=== PATIENT | female | born 1950 | race Caucasian/White ===

== ENCOUNTER 2020-10-23 07:28 | Inpatient (IN) | payer MEDICARE, OTHER ==
[~2020-10-23] VITALS: Ht 162.6 cm; Wt 71.7 kg
[2020-10-23] VITALS (15 sets, daily range): BP systolic 87–122; BP diastolic 61–82
[2020-10-23] MEDS ORDERED: SODIUM CHLORIDE 0.9% 1000ML 1,000 ML ONE (07:55)
[2020-10-23] MEDS ORDERED: SODIUM CHLORIDE 0.9% 1000ML 1,000 ML IV SCH (08:00)
[2020-10-23] MEDS ORDERED: SODIUM CHLORIDE FLUSH 10 ML SYR INJ PRN (09:15)
[2020-10-23] MEDS ORDERED: PANTOPRAZOLE 40 MG 10ML VIAL ONE (09:25)
[2020-10-23 10:07] LABS: BASOPHILS # (AUTO) 0.1 (0.0-0.1); BASOPHILS % 0.5 % (0.0-1.0); EOSINOPHILS # (AUTO) 0.1 (0.0-0.4); EOSINOPHILS % 1.1 % (0.0-6.0); HEMATOCRIT 26.8 % (34.2-44.1); HEMOGLOBIN 9.2 g/dL (12.0-16.0); LYMPHOCYTES # (AUTO) 1.4 (1.0-3.2); LYMPHOCYTES % 11.9 % (18.0-39.1); MEAN CORPUSCULAR HEMOGLOBIN 31.6 pg (28-32); MEAN CORPUSCULAR HGB CONC 34.3 g/dL (31-35); MEAN CORPUSCULAR VOLUME 92.1 fL (81-99); MONOCYTES # (AUTO) 0.8 (0.2-0.8); MONOCYTES % 6.6 % (4.4-11.3); NEUTROPHILS # (AUTO) 9.6 (2.1-6.9); NEUTROPHILS % 79.5 % (38.7-80.0); PLATELET COUNT 208 x10e3/uL (140-360); RED BLOOD COUNT 2.91 x10e6/uL (3.6-5.1)
[2020-10-23 10:39] LABS: CREATINE KINASE MB 0.3 ng/mL (0-5.0)
[2020-10-23] MEDS ORDERED: ARICEPT5 MG PO (10:45)
[2020-10-23] MEDS ORDERED: NAMENDA10 MG PO (10:45)
[2020-10-23] MEDS ORDERED: ASPIRIN81 MG PO (10:45)
[2020-10-23] MEDS ORDERED: ZYPREXA2.5 MG PO (10:45)
[2020-10-23] MEDS ORDERED: AMLODIPINE BESYL5 MG PO (10:45)
[2020-10-23] MEDS ORDERED: SERTRALINE HCL100 MG PO (10:45)
[2020-10-23] MEDS ORDERED: LIPITOR20 MG PO (10:45)
[2020-10-23] MEDS ORDERED: LOSARTAN POTASS25 MG PO (10:45)
[2020-10-23 13:04] LABS: ALBUMIN 3.3 g/dL (3.5-5.0); ALBUMIN/GLOBULIN RATIO 1.2 (0.8-2.0); ANION GAP 16.4 mmol/L (8-16); CALCIUM 8.4 mg/dL (8.4-10.2); CREATININE, SERUM 1.03 mg/dL (0.57-1.11); POTASSIUM 3.4 mmol/L (3.5-5.1)
[2020-10-23] MEDS ORDERED: DEXTROSE 50% SYRINGE 50 ML IV PRN (13:15)
[2020-10-23] MEDS ORDERED: POTASSIUM CHLORIDE 20MEQ/100ML 100 ML IV PRN (13:15)
[2020-10-23 13:52] LABS: % IRON SATURATION 54 % (15-50); IRON 163 ug/dL (50-170); TOTAL IRON BINDING CAPACITY 304 ug/dL (261-478); TRANSFERRIN 217 mg/dL (180-382)
[2020-10-23] MEDS: DEXTROSE 5%/0.9% SOD CHL 1,000 ML IV SCH ×2 (14:04→22:20)
[2020-10-23 14:28] LABS: BASOPHILS % 0.3 % (0.0-1.0); HEMATOCRIT 24.4 % (34.2-44.1); HEMOGLOBIN 8.1 g/dL (12.0-16.0); LYMPHOCYTES # (AUTO) 1.1 (1.0-3.2); MEAN CORPUSCULAR HEMOGLOBIN 31.3 pg (28-32); MEAN CORPUSCULAR HGB CONC 33.2 g/dL (31-35); MEAN CORPUSCULAR VOLUME 94.2 fL (81-99); MONOCYTES # (AUTO) 0.6 (0.2-0.8); MONOCYTES % 4.6 % (4.4-11.3); NEUTROPHILS # (AUTO) 11.4 (2.1-6.9); NEUTROPHILS % 86.6 % (38.7-80.0); PLATELET COUNT 192 x10e3/uL (140-360); RED BLOOD COUNT 2.59 x10e6/uL (3.6-5.1); RED CELL DISTRIBUTION WIDTH 13.1 % (11.7-14.4)
[2020-10-23] MEDS: INSULIN LISPRO 100 UNIT/1 ML 3ML VIAL SQ SCH ×2 (16:58→21:00)
[2020-10-23 19:07] LABS: CREATINE KINASE MB 0.2 ng/mL (0-5.0)
[2020-10-23] MEDS ORDERED: SODIUM CHLORIDE 0.9% 250ML 250 ML IV ONE (20:15)
[2020-10-23] MEDS: ATORVASTATIN 40 MG TAB PO SCH (21:00)
[2020-10-23] MEDS: OLANZAPINE 5 MG TAB PO SCH (21:00)
[2020-10-23] MEDS: PANTOPRAZOLE INJ 40 MG in SODIUM CHLORIDE 0.9% 50ML 50 ML IV SCH (22:08)
[2020-10-24] VITALS (18 sets, daily range): BP systolic 89–126; BP diastolic 54–73
[2020-10-24 01:23] LABS: CREATINE KINASE MB 0.2 ng/mL (0-5.0)
[2020-10-24] MEDS: PANTOPRAZOLE INJ 40 MG in SODIUM CHLORIDE 0.9% 50ML 50 ML IV SCH ×5 (01:23→18:14)
[2020-10-24] MEDS: DEXTROSE 5%/0.9% SOD CHL 1,000 ML IV SCH ×2 (06:23→15:31)
[2020-10-24 06:38] LABS: BASOPHILS % 0.3 % (0.0-1.0); EOSINOPHILS # (AUTO) 0.1 (0.0-0.4); EOSINOPHILS % 1.4 % (0.0-6.0); HEMOGLOBIN 8.5 g/dL (12.0-16.0); LYMPHOCYTES # (AUTO) 1.3 (1.0-3.2); LYMPHOCYTES % 17.3 % (18.0-39.1); MEAN CORPUSCULAR HEMOGLOBIN 30.2 pg (28-32); MEAN CORPUSCULAR HGB CONC 32.7 g/dL (31-35); MEAN CORPUSCULAR VOLUME 92.5 fL (81-99); MONOCYTES # (AUTO) 0.7 (0.2-0.8); MONOCYTES % 9.3 % (4.4-11.3); NEUTROPHILS # (AUTO) 5.3 (2.1-6.9); NEUTROPHILS % 71.3 % (38.7-80.0); RED BLOOD COUNT 2.81 x10e6/uL (3.6-5.1)
[2020-10-24 06:59] LABS: INR 1.06; PROTHROMBIN TIME 14.4 seconds (11.9-14.5)
[2020-10-24 07:00] LABS: PARTIAL THROMBOPLASTIN TIME 29.9 seconds (23.8-35.5)
[2020-10-24 07:01] LABS: ALANINE AMINOTRANSFERASE 20 IU/L (0-55); ALBUMIN 2.8 g/dL (3.5-5.0); ALBUMIN/GLOBULIN RATIO 1.3 (0.8-2.0); ALKALINE PHOSPHATASE 44 IU/L (40-150); ANION GAP 9.1 mmol/L (8-16); BLOOD UREA NITROGEN 40 mg/dL (7-26); BUN/CREATININE RATIO 47 (6-25); CALCIUM 7.5 mg/dL (8.4-10.2); CARBON DIOXIDE 20 mmol/L (22-29); CHLORIDE 121 mmol/L (98-107); CREATININE, SERUM 0.85 mg/dL (0.57-1.11); EST GLOMERULAR FILTRATION RATE > 60 ML/MIN (60-); GLUCOSE 119 mg/dL (74-118); POTASSIUM 3.1 mmol/L (3.5-5.1); SODIUM 147 mmol/L (136-145)
[2020-10-24 07:30] LABS: PLATELET CLUMPS RARE; PLATELET COUNT 113 x10e3/uL (140-360); PLATELET ESTIMATE SLIGHTLY DECREASED; PLATELET MORPHOLOGY COMMENT NORMAL; RBC MORPHOLOGY COMMENT NORMAL
[2020-10-24] MEDS: INSULIN LISPRO 100 UNIT/1 ML 3ML VIAL SQ SCH ×4 (07:30→21:00)
[2020-10-24] MEDS: SERTRALINE HCL 100 MG TAB PO SCH (07:32)
[2020-10-24] MEDS ORDERED: PANTOPRAZOLE 40 MG 10ML VIAL IV SCH (09:00)
[2020-10-24] MEDS ORDERED: LIDOCAINE HCL 2% LOCAL INJ 5 ML SDV VIAL INJ ONE (16:47)
[2020-10-24] MEDS ORDERED: PROPOFOL IV EMULSION 10 MG/ML 20 ML VIAL ONE (16:47)
[2020-10-24 17:03] LABS: HEMATOCRIT 26.4 % (34.2-44.1); HEMOGLOBIN 8.8 g/dL (12.0-16.0)
[2020-10-24] MEDS ORDERED: PANTOPRAZOLE 40 MG 10ML VIAL ONE (18:11)
[2020-10-24] MEDS ORDERED: SODIUM CHLORIDE 0.9% 50ML 50 ML ONE (18:12)
[2020-10-24] MEDS ORDERED: DONEPEZIL HCL 5 MG TAB PO SCH (21:00)
[2020-10-24] MEDS: ATORVASTATIN 40 MG TAB PO SCH (21:20)
[2020-10-24] MEDS: OLANZAPINE 5 MG TAB PO SCH (21:21)
[2020-10-25] VITALS: BP 123/75
[2020-10-25 00:01] LABS: HEMATOCRIT 24.2 % (34.2-44.1); HEMOGLOBIN 8.1 g/dL (12.0-16.0)
[2020-10-25] MEDS: PANTOPRAZOLE INJ 40 MG in SODIUM CHLORIDE 0.9% 50ML 50 ML IV SCH ×3 (00:01→05:01)
[2020-10-25] MEDS: DEXTROSE 5%/0.9% SOD CHL 1,000 ML IV SCH (00:01)
[2020-10-25] MEDS ORDERED: PANTOPRAZOLE 40 MG 10ML VIAL ONE ×2 (00:10→04:28)
[2020-10-25] MEDS ORDERED: SODIUM CHLORIDE 0.9% 50ML 50 ML ONE ×2 (00:10→04:28)
[2020-10-25 06:13] LABS: HEMATOCRIT 24.7 % (34.2-44.1); HEMOGLOBIN 8.2 g/dL (12.0-16.0)
[2020-10-25 06:40] LABS: ANION GAP 8.8 mmol/L (8-16); BUN/CREATININE RATIO 23 (6-25); CALCIUM 7.6 mg/dL (8.4-10.2); CARBON DIOXIDE 20 mmol/L (22-29); CHLORIDE 119 mmol/L (98-107); CREATININE, SERUM 0.77 mg/dL (0.57-1.11); EST GLOMERULAR FILTRATION RATE > 60 ML/MIN (60-); GLUCOSE 112 mg/dL (74-118); SODIUM 145 mmol/L (136-145)
[2020-10-25 06:44] LABS: BLOOD UREA NITROGEN 18 mg/dL (7-26); POTASSIUM 2.8 mmol/L (3.5-5.1)
[2020-10-25] MEDS: INSULIN LISPRO 100 UNIT/1 ML 3ML VIAL SQ SCH (07:30)
[2020-10-25 08:00] VITALS: BP 116/71
[2020-10-25] MEDS ORDERED: POTASSIUM CHLORIDE 20 MEQ TAB CR PO ONE ×2 (08:00→08:30)
[2020-10-25] MEDS: SERTRALINE HCL 100 MG TAB PO SCH (09:00)
[2020-10-25 11:37] VITALS: BP 132/73
[2020-10-25 13:22] VITALS: BP 132/73
== END 2020-10-25 12:31 | disposition home or self-care (01) | DRG 378 ==
LOC: FSED 08:05 → ERHOLD 09:10 → ICU 12:12 → MED/SURG 10-24 17:17
PROVIDERS: ADMIT Internal Medicine; ATTEND Internal Medicine
PROC: 02HV33Z Insertion of Infusion Device into Superior Vena Cava, Percutaneous Approach (ICD-10-PCS; principal; 2020-10-23)
PROC: 30240N1 Transfusion of Nonautologous Red Blood Cells into Central Vein, Open Approach (ICD-10-PCS; 2020-10-23)
PROC: 0DB38ZX Excision of Lower Esophagus, Via Natural or Artificial Opening Endoscopic, Diagnostic (ICD-10-PCS; 2020-10-24)
PROC: 0DB68ZX Excision of Stomach, Via Natural or Artificial Opening Endoscopic, Diagnostic (ICD-10-PCS; 2020-10-24)
DX: K25.0 Acute gastric ulcer with hemorrhage (principal); D62 Acute posthemorrhagic anemia; F03.90 Unspecified dementia, unspecified severity, without behavioral disturbance, psychotic disturbance, mood disturbance, and anxiety; E11.9 Type 2 diabetes mellitus without complications; E87.6 Hypokalemia; I10 Essential (primary) hypertension; E78.5 Hyperlipidemia, unspecified; E78.00 Pure hypercholesterolemia, unspecified; K44.9 Diaphragmatic hernia without obstruction or gangrene; Z20.822 Contact with and (suspected) exposure to COVID-19; I25.10 Atherosclerotic heart disease of native coronary artery without angina pectoris; Z95.1 Presence of aortocoronary bypass graft
CPT/HCPCS: 36415; 36569; 43239; 70450; 71045; 80048; 80053; 80076; 81003; 82270; 82550; 82553; 82948; 83540; 84466; 84484; 85014; 85018; 85025; 85379; 85610; 85730; 86850; 86900; 86920; 87040; 88305; 88312; 93005; 99284; J2001; J7030; J7042; J7050; P9016; U0002